=== PATIENT | female | born 1950 | race Caucasian/White ===

== ENCOUNTER → 2017-09-28 | Outpatient (CLI) | payer BC | END | disposition home or self-care (01) | LOC: LAB EV 16:35 → LAB SHORT 16:35 | DX: N39.0 Urinary tract infection, site not specified (principal) | CPT/HCPCS: 87077; 87086; 87186 ==

== ENCOUNTER → 2017-11-05 | Outpatient (CLI) | payer MEDICARE, BC | LOC: LAB EV 12:21 → LAB SHORT 12:21 | DX: N39.0 Urinary tract infection, site not specified (principal) | CPT/HCPCS: 87077; 87086; 87186 ==

== ENCOUNTER → 2017-12-29 | Outpatient (CLI) | payer MEDICARE, BC | LOC: LAB SHORT 11:49 → LAB 11:49 | PROVIDERS: Nurse Practitioner Family | DX: Z01.419 Encounter for gynecological examination (general) (routine) without abnormal findings (principal) | CPT/HCPCS: 87624; G0145 ==

== ENCOUNTER 2018-01-18 10:19 | Emergency (ER) | payer MEDICARE, BC ==
[~2018-01-18] VITALS: Ht 160 cm; Wt 61.2 kg
[2018-01-18 10:51] LABS: BASOPHILS ABSOLUTE AUTO 0.02 K/mm3 (0.00-0.23); BASOPHILS PERCENT AUTO 0 % (0-2); EOSINOPHILS ABSOLUTE AUTO 0.17 K/mm3 (0.00-0.68); EOSINOPHILS PERCENT AUTO 2 % (0-6); Hematocrit 36.1 % (33.0-51.0); Hemoglobin 12.4 g/dL (11.5-16.0); IMMATURE GRAN ABSOLUTE AUTO 0.02 K/mm3 (0.00-0.10); IMMATURE GRAN PERCENT AUTO 0 % (0-1); LYMPHOCYTES ABSOLUTE AUTO 0.94 K/mm3 (0.84-5.20); LYMPHOCYTES PERCENT AUTO 13 % (21-46); MONOCYTES ABSOLUTE AUTO 0.58 K/mm3 (0.16-1.47); MONOCYTES PERCENT AUTO 8 % (4-13); Mean Corpuscular HGB 30.9 pg (26.0-34.0); Mean Corpuscular HGB Conc 34.3 g/dL (31.5-36.5); Mean Corpuscular Volume 90 fL (80-100); Mean Platelet Volume 9.3 fL (9.1-12.4); NEUTROPHILS ABSOLUTE AUTO 5.58 K/mm3 (1.96-9.15); NEUTROPHILS PERCENT AUTO 76 % (41-73); Platelet Count 195 K/mm3 (150-400); RDW Coefficient Variation 13.2 % (11.7-14.2); RDW Standard Deviation 43.3 fL (35.1-46.3); Red Blood Cell Count 4.01 M/mm3 (3.80-5.20); White Blood Cell Count 7.31 K/mm3 (4.00-11.30)
[2018-01-18 11:08] LABS: Albumin, Blood 3.8 g/dL (3.4-5.0); Albumin/Globulin Ratio 1.4 (0.8-1.8); Bilirubin, Total 1.3 mg/dL (0.1-1.0); Bun/Creatinine Ratio 7.6 (12.0-20.0); Calcium, Blood 8.2 mg/dL (8.5-10.1); Creatinine, Blood 1.19 mg/dL (0.40-1.00); Globulin, Blood 2.7 g/dL (2.2-4.0); Potassium, Blood 3.8 mmol/L (3.5-5.5); Total Protein, Blood 6.5 g/dL (6.4-8.2)
[2018-01-18 15:15] LABS: Source, Urine Clean Catch
[2018-01-18 15:18] LABS: Appearance, Urine Clear (Clear); Bilirubin, Urine Neg (Neg); Blood, Urine 1+ (Neg); Color, Urine Yellow (P-Yellow); Glucose Qualitative, Urine Neg (Neg); Ketones, Urine Neg (Neg); Leukocyte Esterase, Urine 1+ (Neg); Nitrite, Urine Neg (Neg); Protein, Urine 2+ (Neg); Urobilinogen, Urine NORM (Normal)
[2018-01-18 15:25] LABS: Bacteria Few /hpf; Squamous Epithelial Cells Mod /hpf (Few)
[2018-01-18] MEDS ORDERED: TYLECOD3 PO (15:35)
[2018-01-18] MEDS ORDERED: Cipro500 MG PO (15:35)
== END 2018-01-18 15:50 | disposition home or self-care (01) ==
LOC: ER 10:19
PROVIDERS: Nurse Practitioner Family
DX: N39.0 Urinary tract infection, site not specified (principal); Q61.3 Polycystic kidney, unspecified; Z88.8 Allergy status to other drugs, medicaments and biological substances; Z88.0 Allergy status to penicillin
CPT/HCPCS: 36415; 80053; 81001; 85025; 87077; 87086; 87186; 99284

== ENCOUNTER → 2018-08-03 | Outpatient (CLI) | payer MEDICARE, BC ==
[~2018-08-03] MED LIST: Cipro500 MG PO; TYLECOD3 PO
== END | disposition home or self-care (01) ==
LOC: LAB SHORT 11:00 → PLD 11:00
DX: D48.5 Neoplasm of uncertain behavior of skin (principal)
CPT/HCPCS: 88305

== ENCOUNTER → 2018-08-30 | Outpatient (CLI) | payer MEDICARE, BC | END | disposition home or self-care (01) | LOC: LAB SHORT 08:25 → PLD 08:25 | DX: C44.629 Squamous cell carcinoma of skin of left upper limb, including shoulder (principal) | CPT/HCPCS: 88305 ==

== ENCOUNTER → 2018-09-12 | Outpatient (CLI) | payer MEDICARE, BC | END | disposition home or self-care (01) | LOC: LAB SHORT 08:02 → PLD 08:02 | DX: C44.622 Squamous cell carcinoma of skin of right upper limb, including shoulder (principal) | CPT/HCPCS: 88305 ==

== ENCOUNTER 2018-09-29 11:46 | Emergency (ER) | payer MEDICARE, BC ==
[~2018-09-29] VITALS: Ht 160 cm; Wt 64.9 kg
[2018-09-29 12:39] LABS: BASOPHILS ABSOLUTE AUTO 0.04 K/mm3 (0.00-0.23); BASOPHILS PERCENT AUTO 1 % (0-2); EOSINOPHILS ABSOLUTE AUTO 0.17 K/mm3 (0.00-0.68); EOSINOPHILS PERCENT AUTO 3 % (0-6); Hematocrit 41.4 % (33.0-51.0); Hemoglobin 13.7 g/dL (11.5-16.0); IMMATURE GRAN ABSOLUTE AUTO 0.02 K/mm3 (0.00-0.10); IMMATURE GRAN PERCENT AUTO 0 % (0-1); LYMPHOCYTES ABSOLUTE AUTO 1.44 K/mm3 (0.84-5.20); LYMPHOCYTES PERCENT AUTO 21 % (21-46); MONOCYTES PERCENT AUTO 6 % (4-13); Mean Corpuscular HGB 30.5 pg (26.0-34.0); Mean Corpuscular HGB Conc 33.1 g/dL (31.5-36.5); Mean Platelet Volume 9.2 fL (9.1-12.4); NEUTROPHILS ABSOLUTE AUTO 4.84 K/mm3 (1.96-9.15); NEUTROPHILS PERCENT AUTO 70 % (41-73); Platelet Count 233 K/mm3 (150-400); RDW Coefficient Variation 12.3 % (11.7-14.2); RDW Standard Deviation 41.5 fL (35.1-46.3); Red Blood Cell Count 4.49 M/mm3 (3.80-5.20); White Blood Cell Count 6.91 K/mm3 (4.00-11.30)
[2018-09-29 12:40] LABS: Mean Corpuscular Volume 92 fL (80-100)
[2018-09-29 13:01] LABS: Albumin, Blood 4.2 g/dL (3.4-5.0); Albumin/Globulin Ratio 1.6 (0.8-1.8); Bun/Creatinine Ratio 13.4 (12.0-20.0); Calcium, Blood 9.4 mg/dL (8.5-10.1); Creatinine, Blood 1.27 mg/dL (0.40-1.00); Globulin, Blood 2.7 g/dL (2.2-4.0); Potassium, Blood 4.1 mmol/L (3.5-5.5); Total Protein, Blood 6.9 g/dL (6.4-8.2)
[2018-09-29 13:41] LABS: Source, Urine Clean Catch
[2018-09-29 13:50] LABS: Bilirubin, Urine Neg (Neg); Blood, Urine Neg (Neg); Glucose Qualitative, Urine Neg (Neg); Ketones, Urine Neg (Neg); Leukocyte Esterase, Urine 1+ (Neg); Nitrite, Urine Neg (Neg); Protein, Urine 3+ (Neg); Specific Gravity, Urine 1.015 (1.003-1.022); Urobilinogen, Urine NORM (Normal)
[2018-09-29 14:15] LABS: Appearance, Urine Clear (Clear); Color, Urine Yellow (P-Yellow)
[2018-09-29 14:30] LABS: Bacteria Few /hpf; Red Blood Cells, Urine 0-2 /hpf (0-2); Squamous Epithelial Cells Few /hpf (Few)
== END 2018-09-29 13:30 | disposition home or self-care (01) ==
LOC: ER 11:46
PROVIDERS: Physician Assistant
DX: R60.0 Localized edema (principal); Z88.0 Allergy status to penicillin; Z88.8 Allergy status to other drugs, medicaments and biological substances
CPT/HCPCS: 36415; 80053; 81001; 85025; 87077; 87086; 87186; 93971; 99284-25

== ENCOUNTER → 2018-09-29 | Outpatient (CLI) | payer MEDICARE, BC ==
[2018-09-29 11:05] LABS: BASOPHILS ABSOLUTE AUTO 0.03 K/mm3 (0.00-0.23); BASOPHILS PERCENT AUTO 1 % (0-2); EOSINOPHILS ABSOLUTE AUTO 0.13 K/mm3 (0.00-0.68); EOSINOPHILS PERCENT AUTO 2 % (0-6); Hematocrit 38.6 % (33.0-51.0); Hemoglobin 13.4 g/dL (11.5-16.0); IMMATURE GRAN ABSOLUTE AUTO 0.03 K/mm3 (0.00-0.10); IMMATURE GRAN PERCENT AUTO 1 % (0-1); LYMPHOCYTES ABSOLUTE AUTO 1.29 K/mm3 (0.84-5.20); LYMPHOCYTES PERCENT AUTO 20 % (21-46); MONOCYTES ABSOLUTE AUTO 0.39 K/mm3 (0.16-1.47); MONOCYTES PERCENT AUTO 6 % (4-13); Mean Corpuscular HGB 30.7 pg (26.0-34.0); Mean Corpuscular HGB Conc 34.7 g/dL (31.5-36.5); Mean Corpuscular Volume 88 fL (80-100); Mean Platelet Volume 9.4 fL (9.1-12.4); NEUTROPHILS ABSOLUTE AUTO 4.69 K/mm3 (1.96-9.15); NEUTROPHILS PERCENT AUTO 71 % (41-73); Platelet Count 248 K/mm3 (150-400); RDW Coefficient Variation 12.5 % (11.7-14.2); RDW Standard Deviation 40.7 fL (35.1-46.3); Red Blood Cell Count 4.37 M/mm3 (3.80-5.20); White Blood Cell Count 6.56 K/mm3 (4.00-11.30)
[2018-09-29 11:14] LABS: Albumin/Globulin Ratio 1.4 (0.8-1.8); Bilirubin, Total 0.9 mg/dL (0.1-1.0); Bun/Creatinine Ratio 14.1 (12.0-20.0); Calcium, Blood 8.9 mg/dL (8.5-10.1); Creatinine, Blood 1.42 mg/dL (0.40-1.00); Globulin, Blood 2.8 g/dL (2.2-4.0); Potassium, Blood 4.2 mmol/L (3.5-5.5); Total Protein, Blood 6.8 g/dL (6.4-8.2)
[2018-09-29 12:43] LABS: Source, Urine Clean Catch
[2018-09-29 14:32] LABS: Red Blood Cells, Urine 0-2 /hpf (0-2); Squamous Epithelial Cells Many /hpf (Few); White Blood Cells, Urine 50-100 /hpf (0-5)
[2018-09-29 14:33] LABS: Bacteria Many /hpf; Granular Casts Rare /lpf (0); Mucus Light (0-Heavy)
== END | disposition home or self-care (01) ==
LOC: LAB EV 10:59 → LAB SHORT 10:59
PROVIDERS: General Practice
DX: R60.0 Localized edema (principal); R82.90 Unspecified abnormal findings in urine
CPT/HCPCS: 80053; 81015; 85025; 87077; 87086; 87186

== ENCOUNTER → 2018-12-19 | Outpatient (CLI) | payer MEDICARE, BC | LOC: LAB SHORT 10:55 → PLD 10:55 | DX: D48.5 Neoplasm of uncertain behavior of skin (principal) | CPT/HCPCS: 88305 ==

== ENCOUNTER → 2019-02-20 | Outpatient (CLI) | payer MEDICARE, BC | END | disposition home or self-care (01) | LOC: LAB SHORT 08:54 → PLD 08:54 | DX: D48.5 Neoplasm of uncertain behavior of skin (principal) | CPT/HCPCS: 88305 ==

== ENCOUNTER → 2019-04-09 | Outpatient (CLI) | payer MEDICARE, BC | END | disposition home or self-care (01) | LOC: LAB SHORT 14:00 → LAB EV 14:00 | DX: N39.0 Urinary tract infection, site not specified (principal) | CPT/HCPCS: 87077; 87086; 87186 ==

== ENCOUNTER → 2019-08-30 | Outpatient (CLI) | payer MEDICARE, BC | END | disposition home or self-care (01) | LOC: LAB 09:52 → LAB SHORT 09:52 | DX: R39.15 Urgency of urination (principal); R35.0 Frequency of micturition; R80.9 Proteinuria, unspecified | CPT/HCPCS: 87086 ==

== ENCOUNTER → 2019-11-15 | Outpatient (CLI) | payer MEDICARE, BC | END | disposition home or self-care (01) | LOC: PLD 12:00 → LAB SHORT 12:00 | DX: D48.5 Neoplasm of uncertain behavior of skin (principal) | CPT/HCPCS: 88305 ==

== ENCOUNTER 2020-07-31 09:17 | Day surgery (SDC) | payer MEDICARE, BC ==
[~2020-07-31] VITALS: Ht 162.6 cm; Wt 55.9 kg
[~2020-07-31 09:17] MED LIST changes: +ASCO500; +ATOR10; +Amlodipine Bes2.5 MG; +ESTRADIOL42.5 GM; +Flonase 0.05% N16 GM; +LEVSOD75; +LOSA25; +MAGNESIUM OXID500 MG; +MULTI-VITAMIN1 EAC2; +MYCOPHENOLATE500 M2; +OMEP20ER; +PRED5; +TACR1; +VITAMIN D31000 UNI1
--- NOTE | 2020-07-31 11:24 | NUR ---
07/31/20 1124 Alexandra Aguilera 5CC NS INJECTED FOR POLYPECTOMIES IN DUODENUM DURING EGD
--- NOTE | 2020-07-31 12:09 | NUR ---
07/31/20 1209 Angelina Gonzalez DIVERTICULOSIS PAMPHLET SENT HOME WITH PT.
== END 2020-07-31 12:09 | disposition home or self-care (01) ==
LOC: ORSCSDS 09:17
PROVIDERS: Internal Medicine Gastroenterology
PROC: 0DJD8ZZ Inspection of Lower Intestinal Tract, Via Natural or Artificial Opening Endoscopic (ICD-10-PCS; principal; 2020-07-31 10:30)
PROC: 0DB68ZX Excision of Stomach, Via Natural or Artificial Opening Endoscopic, Diagnostic (ICD-10-PCS; principal; 2020-07-31 10:30)
PROC: 0DB98ZX Excision of Duodenum, Via Natural or Artificial Opening Endoscopic, Diagnostic (ICD-10-PCS; principal; 2020-07-31 10:30)
DX: R19.4 Change in bowel habit (principal); K31.7 Polyp of stomach and duodenum; K57.30 Diverticulosis of large intestine without perforation or abscess without bleeding; K64.4 Residual hemorrhoidal skin tags; Z94.0 Kidney transplant status; Z79.899 Other long term (current) drug therapy; Z87.891 Personal history of nicotine dependence
CPT/HCPCS: 88305; 88342; J2704; J7120

== ENCOUNTER → 2020-08-18 | Outpatient (CLI) | payer MEDICARE, BC ==
[~2020-08-18] MED LIST changes: +Norco 5-325 Ta1 EACH PO; +ONDA4 PO
[2020-08-18 13:49] LABS: Source, Urine Clean Catch
[2020-08-18 14:58] LABS: Appearance, Urine Clear (Clear); Bilirubin, Urine Neg (Neg); Blood, Urine 4+ (Neg); Color, Urine Yellow (P-Yellow); Glucose Qualitative, Urine Neg (Neg); Ketones, Urine Neg (Neg); Leukocyte Esterase, Urine Neg (Neg); Nitrite, Urine Neg (Neg); Protein, Urine 3+ (Neg); Specific Gravity, Urine 1.015 (1.003-1.022); Urobilinogen, Urine NORM (Normal)
[2020-08-18 15:13] LABS: Bacteria Few /hpf; Red Blood Cells, Urine 25-50 /hpf (0-2); Squamous Epithelial Cells Few /hpf (Few)
== END | disposition home or self-care (01) ==
LOC: LAB 13:46 → LAB SHORT 13:46
PROVIDERS: Internal Medicine
DX: N39.0 Urinary tract infection, site not specified (principal)
CPT/HCPCS: 81001

== ENCOUNTER 2020-10-06 13:06 | Emergency (ER) | payer OTHER, MEDICARE, BC ==
[~2020-10-06] VITALS: Ht 162.6 cm; Wt 57.6 kg
[~2020-10-06 13:06] MED LIST changes: -Norco 5-325 Ta1 EACH PO; -ONDA4 PO
[2020-10-06] MEDS ORDERED: ONDA4 PO (15:21)
[2020-10-06] MEDS ORDERED: Norco 5-325 Ta1 EACH PO (15:21)
== END 2020-10-06 15:37 | disposition home or self-care (01) ==
LOC: ER 13:06
DX: S92.331A Displaced fracture of third metatarsal bone, right foot, initial encounter for closed fracture (principal); S92.341A Displaced fracture of fourth metatarsal bone, right foot, initial encounter for closed fracture; S92.351A Displaced fracture of fifth metatarsal bone, right foot, initial encounter for closed fracture; Z88.0 Allergy status to penicillin; Z88.1 Allergy status to other antibiotic agents; Z79.899 Other long term (current) drug therapy; W01.0XXA Fall on same level from slipping, tripping and stumbling without subsequent striking against object, initial encounter
CPT/HCPCS: 29515; 73630; 99283-25; A9270; A9270-GY

== ENCOUNTER → 2020-11-13 | Outpatient (CLI) | payer MEDICARE, BC ==
[~2020-11-13] MED LIST changes: +Norco 5-325 Ta1 EACH PO; +ONDA4 PO
== END ==
LOC: LAB SHORT 12:55 → LAB 12:55
DX: L57.0 Actinic keratosis (principal)
CPT/HCPCS: 88305

== ENCOUNTER → 2021-04-06 | Outpatient (CLI) | payer MEDICARE, BC | END | disposition home or self-care (01) | LOC: LAB SHORT 07:35 | DX: D48.5 Neoplasm of uncertain behavior of skin (principal) | CPT/HCPCS: 88305 ==

== ENCOUNTER → 2021-04-29 | Outpatient (CLI) | payer MEDICARE, BC | END | disposition home or self-care (01) | LOC: LAB SHORT 11:31 | DX: C44.311 Basal cell carcinoma of skin of nose (principal) | CPT/HCPCS: 88305 ==

== ENCOUNTER → 2021-06-30 | Outpatient (CLI) | payer MEDICARE, BC | END | disposition home or self-care (01) | LOC: LAB SHORT 08:53 | DX: L90.5 Scar conditions and fibrosis of skin (principal); L57.8 Other skin changes due to chronic exposure to nonionizing radiation | CPT/HCPCS: 88305 ==

== ENCOUNTER → 2021-12-29 | Outpatient (CLI) | payer MEDICARE, BC ==
[~2021-12-29] MED LIST changes: +CLEOCIN T60 G1; +Nexium40 MG PO; +PROGRAF0.5 M1 PO
== END | disposition home or self-care (01) ==
LOC: PLD 07:35 → LAB 07:35 → LAB SHORT 07:35
DX: C44.629 Squamous cell carcinoma of skin of left upper limb, including shoulder (principal)
CPT/HCPCS: 88305

== ENCOUNTER 2022-03-30 14:09 | Emergency (ER) | payer OTHER, MEDICARE, BC ==
[~2022-03-30] VITALS: Ht 162.6 cm; Wt 57.1 kg
== END 2022-03-30 16:17 | disposition home or self-care (01) ==
LOC: ER 14:09
DX: S93.401A Sprain of unspecified ligament of right ankle, initial encounter (principal); I10 Essential (primary) hypertension; W01.0XXA Fall on same level from slipping, tripping and stumbling without subsequent striking against object, initial encounter; Z79.890 Hormone replacement therapy; Z79.899 Other long term (current) drug therapy; Z79.52 Long term (current) use of systemic steroids; Z88.8 Allergy status to other drugs, medicaments and biological substances
CPT/HCPCS: 73610; A9270

== ENCOUNTER → 2022-04-27 | Outpatient (CLI) | payer MEDICARE, BC | END | disposition home or self-care (01) | LOC: PLD 11:05 → LAB SHORT 11:05 | DX: C44.722 Squamous cell carcinoma of skin of right lower limb, including hip (principal) | CPT/HCPCS: 88305 ==

== ENCOUNTER → 2022-08-25 | Outpatient (CLI) | payer MEDICARE, BC | LOC: LAB SHORT 10:00 → PLD 10:00 | DX: D48.5 Neoplasm of uncertain behavior of skin (principal) | CPT/HCPCS: 88305 ==

== ENCOUNTER → 2023-03-17 | Outpatient (CLI) | payer MEDICARE, BC | LOC: PLD 12:31 → LAB SHORT 12:31 | DX: D04.0 Carcinoma in situ of skin of lip (principal) | CPT/HCPCS: 88305 ==

== ENCOUNTER → 2023-05-18 | Outpatient (CLI) | payer MEDICARE, BC | LOC: LAB SHORT 08:01 → PLD 08:01 | DX: D48.5 Neoplasm of uncertain behavior of skin (principal) | CPT/HCPCS: 88305 ==

== ENCOUNTER 2023-08-03 08:00 | Day surgery (SDC) | payer MEDICARE, BC ==
[~2023-08-03] VITALS: Ht 162.6 cm; Wt 55.0 kg
[~2023-08-03 08:00] MED LIST changes: +AMLO5 PO; -ATOR10; +ATOR10 PO; -LEVSOD75; +LEVSOD75 PO; -LOSA25; +LOSA25 PO; +Lactated Ringer's 1,000 ML IV ONE; -MAGNESIUM OXID500 MG; +MAGNESIUM OXID500 MG PO; -MULTI-VITAMIN1 EAC2; +MULTI-VITAMIN1 EAC2 PO; -MYCOPHENOLATE500 M2; +MYCOPHENOLATE500 M2 PO; -PRED5; +PRED5 PO; +PREMARIN VAG; -PROGRAF0.5 M1 PO; -TACR1; +TACR1 PO; -VITAMIN D31000 UNI1; +Vitamin D1000 UNI1 PO; +propofoL 50 ML IV ONE
[2023-08-03] MEDS ORDERED: Lactated Ringer's 1,000 ML IV ONE (09:23)
[2023-08-03 11:01] VITALS: BP 143/81
== END 2023-08-03 10:51 | disposition home or self-care (01) ==
LOC: ORSCSDS 08:00
PROVIDERS: Internal Medicine Gastroenterology
PROC: 0DBM8ZX Excision of Descending Colon, Via Natural or Artificial Opening Endoscopic, Diagnostic (ICD-10-PCS; principal; 2023-08-03 09:30)
DX: Z12.11 Encounter for screening for malignant neoplasm of colon (principal); Z86.010 Personal history of colon polyps; K63.5 Polyp of colon; K63.0 Abscess of intestine; Z87.891 Personal history of nicotine dependence; K64.4 Residual hemorrhoidal skin tags; I12.9 Hypertensive chronic kidney disease with stage 1 through stage 4 chronic kidney disease, or unspecified chronic kidney disease; N18.4 Chronic kidney disease, stage 4 (severe); Z94.0 Kidney transplant status; Z79.899 Other long term (current) drug therapy
CPT/HCPCS: 88305; J2704; J7120

== ENCOUNTER 2024-08-15 01:10 | Day surgery (SDC) | payer MEDICARE, BC ==
[~2024-08-15 01:10] MED LIST changes: -Lactated Ringer's 1,000 ML IV ONE; -propofoL 50 ML IV ONE
[2024-08-15] MEDS ORDERED: NS IV SCH (06:00)
[2024-08-15] MEDS ORDERED: BELATACEPT IV SCH (06:00)
[2024-08-15 09:37] VITALS: BP 148/72
== END 2024-08-15 11:07 | disposition home or self-care (01) ==
LOC: ATC 01:10
DX: Z48.22 Encounter for aftercare following kidney transplant (principal); I10 Essential (primary) hypertension; E11.9 Type 2 diabetes mellitus without complications; E89.0 Postprocedural hypothyroidism; Z94.0 Kidney transplant status; Z87.891 Personal history of nicotine dependence; Z79.890 Hormone replacement therapy; Z79.899 Other long term (current) drug therapy; Z88.0 Allergy status to penicillin; Z88.8 Allergy status to other drugs, medicaments and biological substances
CPT/HCPCS: 96365; J0485

== ENCOUNTER → 2024-08-21 | Outpatient (CLI) | payer MEDICARE, BC ==
[2024-08-21 14:20] LABS: Source, Urine Clean Catch
[2024-08-21 14:34] LABS: Appearance, Urine Hazy (Clear); Bilirubin, Urine Neg (Neg); Blood, Urine 2+ (Neg); Glucose Qualitative, Urine Neg (Neg); Ketones, Urine Neg (Neg); Leukocyte Esterase, Urine 3+ (Neg); Nitrite, Urine Pos (Neg); Protein, Urine 3+ (Neg); Urobilinogen, Urine 1+ (Normal); pH, Urine 6.5 (5.0-8.0)
[2024-08-21 15:01] LABS: Color, Urine Yellow (P-Yellow)
[2024-08-21 15:02] LABS: Bacteria Mod /hpf; Red Blood Cells, Urine 0-2 /hpf (0-2); Squamous Epithelial Cells Mod /hpf (Few); White Blood Cells, Urine 25-50 /hpf (0-5)
== END ==
LOC: LAB SHORT 11:01 → LAB 11:01
PROVIDERS: Student in an Organized Health Care Education/Training Program
DX: R30.0 Dysuria (principal)
CPT/HCPCS: 81001; 87086

== ENCOUNTER 2024-09-13 00:40 | Day surgery (SDC) | payer MEDICARE, BC ==
[2024-09-13] MEDS ORDERED: NS IV SCH (06:00)
[2024-09-13] MEDS ORDERED: BELATACEPT IV SCH (06:00)
[2024-09-13 07:56] VITALS: BP 159/98
== END 2024-09-13 09:12 | disposition home or self-care (01) ==
LOC: ATC 00:40
DX: Z48.22 Encounter for aftercare following kidney transplant (principal); Z94.0 Kidney transplant status; I12.9 Hypertensive chronic kidney disease with stage 1 through stage 4 chronic kidney disease, or unspecified chronic kidney disease; N18.9 Chronic kidney disease, unspecified; N25.81 Secondary hyperparathyroidism of renal origin; Z87.891 Personal history of nicotine dependence; Z88.0 Allergy status to penicillin; Z88.8 Allergy status to other drugs, medicaments and biological substances; Z79.890 Hormone replacement therapy; Z79.899 Other long term (current) drug therapy
CPT/HCPCS: 96365; J0485

== ENCOUNTER 2024-10-18 01:35 | Day surgery (SDC) | payer MEDICARE, BC ==
[~2024-10-18 01:35] MED LIST changes: +BELATACEPT IV SCH; +NS IV SCH
[2024-10-18 09:01] VITALS: BP 143/66
== END 2024-10-18 10:14 | disposition home or self-care (01) ==
LOC: ATC 01:35
DX: Z48.22 Encounter for aftercare following kidney transplant (principal); Z94.0 Kidney transplant status; I10 Essential (primary) hypertension; Z79.899 Other long term (current) drug therapy; Z88.0 Allergy status to penicillin; Z88.8 Allergy status to other drugs, medicaments and biological substances; Z87.891 Personal history of nicotine dependence
CPT/HCPCS: 96365; J0485

== ENCOUNTER 2024-12-21 02:01 | Day surgery (SDC) | payer MEDICARE, BC ==
[~2024-12-21 02:01] MED LIST changes: -BELATACEPT IV SCH; -NS IV SCH
[2024-12-21] MEDS ORDERED: NS IV SCH (06:00)
[2024-12-21] MEDS ORDERED: BELATACEPT IV SCH (06:00)
[2024-12-21 07:54] VITALS: BP 154/81
[2024-12-21] MEDS ORDERED: CALCIUM 600-VI1 EAC7 (08:13)
[2024-12-21] MEDS ORDERED: NULOJIX250 MG IV (08:14)
[2024-12-21] MEDS ORDERED: METO50ER PO (08:14)
[2024-12-21] MEDS ORDERED: FARXIGA5 MG PO (08:15)
[2024-12-21] MEDS ORDERED: CRANBERRY215 MG (08:15)
== END 2024-12-21 09:17 | disposition home or self-care (01) ==
LOC: ATC 02:01
DX: Z48.22 Encounter for aftercare following kidney transplant (principal); I12.9 Hypertensive chronic kidney disease with stage 1 through stage 4 chronic kidney disease, or unspecified chronic kidney disease; N18.9 Chronic kidney disease, unspecified; Z79.899 Other long term (current) drug therapy; Z79.890 Hormone replacement therapy; Z88.0 Allergy status to penicillin; Z88.8 Allergy status to other drugs, medicaments and biological substances; Z87.891 Personal history of nicotine dependence
CPT/HCPCS: 96365; J0485

== ENCOUNTER 2025-01-18 01:09 | Day surgery (SDC) | payer MEDICARE, BC ==
[~2025-01-18 01:09] MED LIST changes: +CALCIUM 600-VI1 EAC7; +CRANBERRY215 MG; +FARXIGA5 MG PO; +METO50ER PO; +NULOJIX250 MG IV
[2025-01-18] MEDS ORDERED: NS IV SCH (06:00)
[2025-01-18] MEDS ORDERED: BELATACEPT IV SCH (06:00)
[2025-01-18 08:10] VITALS: BP 155/80
== END 2025-01-18 09:25 | disposition home or self-care (01) ==
LOC: ATC 01:09
DX: Z48.22 Encounter for aftercare following kidney transplant (principal); I10 Essential (primary) hypertension; E89.0 Postprocedural hypothyroidism; Z94.0 Kidney transplant status; Z87.891 Personal history of nicotine dependence; Z79.899 Other long term (current) drug therapy; Z88.0 Allergy status to penicillin; Z88.8 Allergy status to other drugs, medicaments and biological substances
CPT/HCPCS: 96365; J0485

== ENCOUNTER 2025-02-14 00:48 | Day surgery (SDC) | payer MEDICARE, BC ==
[2025-02-14] MEDS ORDERED: BELATACEPT IV SCH (06:00)
[2025-02-14] MEDS ORDERED: NS IV SCH (06:00)
[2025-02-14 08:13] VITALS: BP 142/74
== END 2025-02-14 09:40 | disposition home or self-care (01) ==
LOC: ATC 00:48
DX: Z29.89 Encounter for other specified prophylactic measures (principal); I12.9 Hypertensive chronic kidney disease with stage 1 through stage 4 chronic kidney disease, or unspecified chronic kidney disease; N18.9 Chronic kidney disease, unspecified; Q61.3 Polycystic kidney, unspecified; E89.0 Postprocedural hypothyroidism; L57.0 Actinic keratosis; N25.81 Secondary hyperparathyroidism of renal origin; Z87.891 Personal history of nicotine dependence; Z79.52 Long term (current) use of systemic steroids; Z79.621 Long term (current) use of calcineurin inhibitor; Z79.624 Long term (current) use of inhibitors of nucleotide synthesis; Z79.890 Hormone replacement therapy; Z79.899 Other long term (current) drug therapy; Z88.0 Allergy status to penicillin; Z88.8 Allergy status to other drugs, medicaments and biological substances; Z94.0 Kidney transplant status
CPT/HCPCS: 96365; J0485

== ENCOUNTER → 2025-02-27 | Outpatient (CLI) | payer MEDICARE, BC ==
[2025-02-27 13:19] LABS: BASOPHILS ABSOLUTE AUTO 0.02 K/mm3 (0.00-0.23); BASOPHILS PERCENT AUTO 0 % (0-2); EOSINOPHILS ABSOLUTE AUTO 0.07 K/mm3 (0.00-0.68); EOSINOPHILS PERCENT AUTO 1 % (0-6); Hematocrit 37.8 % (33.0-51.0); Hemoglobin 12.4 g/dL (11.5-16.0); IMMATURE GRAN ABSOLUTE AUTO 0.01 K/mm3 (0.00-0.10); IMMATURE GRAN PERCENT AUTO 0 % (0-1); LYMPHOCYTES ABSOLUTE AUTO 0.91 K/mm3 (0.84-5.20); LYMPHOCYTES PERCENT AUTO 14 % (21-46); MONOCYTES ABSOLUTE AUTO 0.31 K/mm3 (0.16-1.47); MONOCYTES PERCENT AUTO 5 % (4-13); Mean Corpuscular HGB Conc 32.8 g/dL (31.5-36.5); Mean Corpuscular Volume 89 fL (80-100); NEUTROPHILS ABSOLUTE AUTO 5.08 K/mm3 (1.96-9.15); NEUTROPHILS PERCENT AUTO 79 % (41-73); NRBC ABSOLUTE 0.00 K/mm3 (0.00-0.02); NRBC Auto 0.0 /100 WBC (0.0-0.2); Platelet Count 261 K/mm3 (150-400); RDW Coefficient Variation 12.8 % (11.7-14.2); RDW Standard Deviation 41.6 fL (35.1-46.3)
[2025-02-27 13:47] LABS: Alanine Aminotransfer (ALT/SGP 18 U/L (12-78); Albumin, Blood 3.7 g/dL (3.4-5.0); Albumin/Globulin Ratio 1.4 (0.8-1.8); Anion Gap 7 mmol/L (3-11); Aspartate Aminotrans (AST/SGOT 14 U/L (12-37); Bilirubin, Total 0.7 mg/dL (0.1-1.0); Blood Urea Nitrogen 35 mg/dL (8-24); CHOL/HDL RATIO 2.3; CO2, Blood 26 mmol/L (21-32); Calcium, Blood 9.0 mg/dL (8.5-10.1); Chloride, Blood 107 mmol/L (98-108); Cholesterol 172 mg/dL (50-200); Creatinine, Blood 1.95 mg/dL (0.40-1.00); Globulin, Blood 2.6 g/dL (2.2-4.0); Glucose, Blood 138 mg/dL (70-99); HDL Cholesterol 74 mg/dL (>39); LDL/HDL RATIO 0.9; Low Density Lipoprotein Chol 70 mg/dL (0-110); Potassium, Blood 3.8 mmol/L (3.5-5.5); Sodium, Blood 136 mmol/L (136-145); Thyroid Stimulating Hormone 1.000 uIU/mL (0.360-4.800); Total Protein, Blood 6.3 g/dL (6.4-8.2); Triglycerides 139 mg/dL (30-160); Very Low Density Lipoprot Chol 27 mg/dL (6-32)
== END ==
LOC: LAB 09:50 → LAB SHORT 09:50
PROVIDERS: Student in an Organized Health Care Education/Training Program
DX: E78.2 Mixed hyperlipidemia (principal); E03.9 Hypothyroidism, unspecified; E11.22 Type 2 diabetes mellitus with diabetic chronic kidney disease; N18.32 Chronic kidney disease, stage 3b
CPT/HCPCS: 80053; 80061; 83036; 84443; 85025

== ENCOUNTER 2025-03-22 01:17 | Day surgery (SDC) | payer MEDICARE, BC ==
[2025-03-22] MEDS ORDERED: BELATACEPT IV SCH (06:00)
[2025-03-22] MEDS ORDERED: NS IV SCH (06:00)
[2025-03-22 09:11] VITALS: BP 124/70
== END 2025-03-22 10:50 | disposition home or self-care (01) ==
LOC: ATC 01:17
DX: Z48.22 Encounter for aftercare following kidney transplant (principal); E89.0 Postprocedural hypothyroidism; I10 Essential (primary) hypertension; E11.9 Type 2 diabetes mellitus without complications; N25.81 Secondary hyperparathyroidism of renal origin; Z94.0 Kidney transplant status; Z87.891 Personal history of nicotine dependence; Z79.890 Hormone replacement therapy; Z79.899 Other long term (current) drug therapy; Z88.0 Allergy status to penicillin; Z88.8 Allergy status to other drugs, medicaments and biological substances
CPT/HCPCS: 96365; J0485

== ENCOUNTER → 2025-04-16 | Outpatient (CLI) | payer MEDICARE, BC ==
[2025-04-16 15:15] LABS: Source, Urine Voided
[2025-04-16 16:22] LABS: Bilirubin, Urine Neg (Neg); Glucose Qualitative, Urine 4+ (Neg); Ketones, Urine Neg (Neg); Leukocyte Esterase, Urine Neg (Neg); Protein, Urine 2+ (Neg); Specific Gravity, Urine 1.010 (1.003-1.022); Urobilinogen, Urine NORM (Normal)
[2025-04-16 16:23] LABS: BASOPHILS ABSOLUTE AUTO 0.03 K/mm3 (0.00-0.23); BASOPHILS PERCENT AUTO 1 % (0-2); EOSINOPHILS ABSOLUTE AUTO 0.08 K/mm3 (0.00-0.68); EOSINOPHILS PERCENT AUTO 1 % (0-6); Hematocrit 36.9 % (33.0-51.0); Hemoglobin 12.0 g/dL (11.5-16.0); IMMATURE GRAN ABSOLUTE AUTO 0.08 K/mm3 (0.00-0.10); IMMATURE GRAN PERCENT AUTO 1 % (0-1); LYMPHOCYTES ABSOLUTE AUTO 0.95 K/mm3 (0.84-5.20); LYMPHOCYTES PERCENT AUTO 16 % (21-46); MONOCYTES ABSOLUTE AUTO 0.31 K/mm3 (0.16-1.47); MONOCYTES PERCENT AUTO 5 % (4-13); Mean Corpuscular HGB Conc 32.5 g/dL (31.5-36.5); Mean Corpuscular Volume 89 fL (80-100); NEUTROPHILS ABSOLUTE AUTO 4.40 K/mm3 (1.96-9.15); NEUTROPHILS PERCENT AUTO 75 % (41-73); NRBC ABSOLUTE 0.00 K/mm3 (0.00-0.02); NRBC Auto 0.0 /100 WBC (0.0-0.2); Platelet Count 248 K/mm3 (150-400); RDW Coefficient Variation 12.8 % (11.7-14.2); RDW Standard Deviation 41.9 fL (35.1-46.3)
[2025-04-16 16:33] LABS: Color, Urine Pale Yellow (P-Yellow)
[2025-04-16 16:35] LABS: Yeast/Fungi Urine Few /hpf
[2025-04-16 18:15] LABS: Alanine Aminotransfer (ALT/SGP 20.0 U/L (12-78); Albumin, Blood 3.9 g/dL (3.4-5.0); Albumin/Globulin Ratio 1.6 (0.8-1.8); Anion Gap 9.0 mmol/L (3-11); Aspartate Aminotrans (AST/SGOT 14.0 U/L (12-37); Bilirubin, Total 0.7 mg/dL (0.1-1.0); Blood Urea Nitrogen 33.0 mg/dL (8-24); CO2, Blood 26.0 mmol/L (21-32); Calcium, Blood 9.1 mg/dL (8.5-10.1); Chloride, Blood 105.0 mmol/L (98-108); Creatinine, Blood 2.24 mg/dL (0.40-1.00); Globulin, Blood 2.4 g/dL (2.2-4.0); Glucose, Blood 115.0 mg/dL (70-99); Potassium, Blood 3.9 mmol/L (3.5-5.5); Sodium, Blood 136.0 mmol/L (136-145); Total Protein, Blood 6.3 g/dL (6.4-8.2)
== END ==
LOC: LAB 10:05 → LAB SHORT 10:05
PROVIDERS: Student in an Organized Health Care Education/Training Program
DX: E11.9 Type 2 diabetes mellitus without complications (principal); I10 Essential (primary) hypertension; N18.32 Chronic kidney disease, stage 3b; R10.A1 Flank pain, right side
CPT/HCPCS: 80053; 81001; 83036; 85025

== ENCOUNTER 2025-04-18 01:56 | Day surgery (SDC) | payer MEDICARE, BC ==
[2025-04-18] MEDS ORDERED: NS IV SCH (06:00)
[2025-04-18] MEDS ORDERED: BELATACEPT IV SCH (06:00)
[2025-04-18 08:05] VITALS: BP 125/86
== END 2025-04-18 09:20 | disposition home or self-care (01) ==
LOC: ATC 01:56
DX: Z48.22 Encounter for aftercare following kidney transplant (principal); I10 Essential (primary) hypertension; E89.0 Postprocedural hypothyroidism; Z94.0 Kidney transplant status; Z87.891 Personal history of nicotine dependence; Z79.890 Hormone replacement therapy; Z79.899 Other long term (current) drug therapy; Z88.0 Allergy status to penicillin; Z88.8 Allergy status to other drugs, medicaments and biological substances
CPT/HCPCS: 96365; J0485

== ENCOUNTER 2025-05-20 04:31 | Day surgery (SDC) | payer MEDICARE, BC ==
[2025-05-20] MEDS ORDERED: NS IV SCH (06:00)
[2025-05-20] MEDS ORDERED: BELATACEPT IV SCH (06:00)
[2025-05-20 11:05] VITALS: BP 136/78
== END 2025-05-20 12:20 | disposition home or self-care (01) ==
LOC: ATC 04:31
DX: Z48.22 Encounter for aftercare following kidney transplant (principal); I10 Essential (primary) hypertension; E89.0 Postprocedural hypothyroidism; N25.81 Secondary hyperparathyroidism of renal origin; Z87.891 Personal history of nicotine dependence; Z94.0 Kidney transplant status; Z79.899 Other long term (current) drug therapy; Z88.0 Allergy status to penicillin; Z88.8 Allergy status to other drugs, medicaments and biological substances
CPT/HCPCS: 96413; J0485